=== PATIENT | male | born 1955 | race Caucasian/White ===

== ENCOUNTER 2017-04-30 20:51 | Emergency (ER) | payer OTHER ==
[~2017-04-30 20:51] MED LIST: ASPIR 8181 MG PO; ELIQUIS5 MG PO; HABITROL 21 MG P1 EA TD; LIPITOR TAB 2020 MG PO; LOPRESSOR 50 MG50 MG PO
== END 2017-04-30 22:51 | disposition home or self-care (01) ==
LOC: ER1 20:51
DX: R04.0 Epistaxis (principal); I48.91 Unspecified atrial fibrillation
CPT/HCPCS: 99283

== ENCOUNTER 2021-02-07 23:51 | Emergency (ER) | payer MEDICARE, OTHER ==
[~2021-02-07 23:51] MED LIST changes: +LEVAQUIN500 MG PO
[2021-02-08 04:42] LABS: HEMOGLOBIN 15.4 gm/dl (14.0-17.5); RED BLOOD COUNT 4.7 M/UL (4.20-5.50); WHITE BLOOD COUNT 10.1 K/UL (4.5-11.0)
[2021-02-08 05:07] LABS: BUN/CREATININE RATIO 16 (0-10)
[2021-02-08] MEDS ORDERED: BENTYL 10MG CAP10 MG PO (07:19)
[2021-02-08] MEDS ORDERED: ZOFRAN ODT 4 MG4 MG PO (07:19)
== END 2021-02-08 08:00 | disposition home or self-care (01) ==
LOC: ER1 23:51
PROVIDERS: Emergency Medicine
DX: R10.84 Generalized abdominal pain (principal); I11.0 Hypertensive heart disease with heart failure; J44.9 Chronic obstructive pulmonary disease, unspecified; E11.9 Type 2 diabetes mellitus without complications; F17.210 Nicotine dependence, cigarettes, uncomplicated; I48.91 Unspecified atrial fibrillation
CPT/HCPCS: 80053; 81001; 82550; 82553; 83605; 83690; 83874; 84484; 85025; 93005; 96372; 96374; 96375; 99284; J0500; J2270; J2405; J7040; Q9967